=== PATIENT | male | born 1960 | race Caucasian/White ===

== ENCOUNTER 2017-03-02 19:07 | Inpatient (IN) ==
[2017-03-02] MEDS ORDERED: ATIVAN IV ONE (19:29)
[2017-03-02 19:35] LABS: MANUAL DIFF NEEDED? NO
[2017-03-02 19:37] LABS: EOS# 0.14 X1000 (0.0-0.7); HEMATOCRIT 34.6 % (42.0-52.0); HEMOGLOBIN 12.1 g/dL (14.0-18.0); IMM GRAN# 0.01 X1000 (0.0-0.04); IMM GRAN% 0.1 % (0.0-0.5); LYMPH# 2.63 X1000 (1.2-3.4); LYMPH% 36.7 % (20.5-51.1); MCH 29.3 PG (27-31); MCV 83.8 FL (81-99); MONO# 0.47 X1000 (0.11-0.59); MONO% 6.6 % (1.7-9.3); MPV 11.3 FL (7.4-10.4); NEUT% 53.6 % (42.2-75.2); PLT 203 X1000 (130-400); RBC 4.13 XMIL (4.7-6.1)
[2017-03-02] MEDS ORDERED: AMIDATE IV ONE (19:42)
[2017-03-02] MEDS ORDERED: AMIDATE ONE (19:42)
[2017-03-02] MEDS ORDERED: QUELICIN ONE (19:43)
[2017-03-02] MEDS ORDERED: QUELICIN IV ONE (19:44)
[2017-03-02] MEDS ORDERED: NORCURON ONE (19:46)
[2017-03-02] MEDS ORDERED: STERILE WATER INJ. ONE (19:47)
[2017-03-02] MEDS ORDERED: NORCURON IV ONE ×3 (19:48→21:25)
[2017-03-02] MEDS ORDERED: DIPRIVAN 1% 1,000 MG/100 ML BOTTLE IV SCH (19:50)
[2017-03-02] MEDS ORDERED: NS 1,000 ML IV ONE ×3 (19:56→21:07)
[2017-03-02] MEDS ORDERED: NS 1,000 ML ONE (19:56)
[2017-03-02 20:06] LABS: ALBUMIN 3.9 g/dL (3.5-5.0); CALCIUM 9.5 mg/dL (8.8-10.2); MAGNESIUM 1.8 mg/dL (1.5-2.7); POTASSIUM 3.5 mmol/L (3.5-5.1); TOTAL BILIRUBIN 0.4 mg/dL (0.20-1.00)
[2017-03-02 20:12] LABS: UR AMPHETAMINES QUAL NONE DETECTED (NONE DETECT); UR BARBITUATES QUAL NONE DETECTED (NONE DETECT); UR BENZODIAZEPIN QUAL NONE DETECTED (NONE DETECT); UR CANNABINOIDS QUAL NONE DETECTED (NONE DETECT); UR COCAINE QUAL NONE DETECTED (NONE DETECT); UR MDMA QUAL NONE DETECTED (NONE DETECT); UR METHADONE QUAL NONE DETECTED (NONE DETECT); UR METHAMPHETAMINE QUAL NONE DETECTED (NONE DETECT); UR OPIATES QUAL NONE DETECTED (NONE DETECT); UR OXYCODONE QUAL NONE DETECTED (NONE DETECT); UR PCP QUAL NONE DETECTED (NONE DETECT); UR TCA QUAL NONE DETECTED (NONE DETECT)
[2017-03-02 20:16] LABS: INR 1.04 (0.86-1.15); PROTIME 13.9 Seconds (12.1-15.5); PTT PL 28.7 Seconds (22.6-43.9)
[2017-03-02 20:18] LABS: FREE T4 1.2 ng/dL (0.93-1.70)
[2017-03-02] MEDS ORDERED: LASIX IV ONE (20:24)
[2017-03-02] MEDS ORDERED: LASIX ONE (20:25)
[2017-03-02 20:27] LABS: BILIRUBIN URINE NEGATIVE (NEGATIVE); BLOOD URINE 3+ (NEGATIVE); CLARITY SL. CLOUDY (CLEAR); COLOR YELLOW; LEUKOCYTES URINE TRACE (NEGATIVE); NITRITE URINE NEGATIVE (NEGATIVE); UROBILINOGEN URINE NORMAL
--- NOTE | 2017-03-02 20:34 | Diag Imaging Result Document ---
PROCEDURE NAME: HEAD W/O CONTRAST - 03/02/2017 CT OF THE HEAD WITHOUT CONTRAST: FINDINGS: There is opacification of the visualized portion of the left maxillary sinus and most of the left sphenoid sinus with several of the anterior ethmoid air cells being opacified as well. The possibility of a mucocele in the left maxillary sinus cannot be excluded. There is no evidence of bleed or abnormal extra-axial fluid collection. There is some periventricular white matter lucency extending into the anterior limb of the internal capsule on the left which is presumably due to previous microvascular ischemic disease. No previous studies are available for comparison. There are calcifications present in both internal carotid arteries and the basilar artery and both vertebral arteries. IMPRESSION: Atherosclerotic changes and microvascular ischemic change. Left maxillary, ethmoid and sphenoid sinusitis.
[2017-03-02 20:48] LABS: URINE WBC <10 /HPF (<10)
[2017-03-02 20:49] LABS: URINE CAST NONE SEEN /LPF; URINE CRYSTAL NONE SEEN /HPF; URINE CULTURE PL NEEDED? YES; URINE EPITHELIAL CELLS <10 /HPF (<10); URINE SOURCE CATH
--- NOTE | 2017-03-02 21:29 | EKG Report ---
Test Performed on : 03/02/2017 8:21:34 PM Test Reason : CHEST PAIN Blood Pressure : / mmHG Vent. Rate : 140 BPM Atrial Rate : 150 BPM P-R Int : 124 ms QRS Dur : 092 ms QT Int : 270 ms P-R-T Axes : 000 074 196 degrees QTc Int : 412 ms Sinus tachycardia. with premature ventricular complexes. or fusion complexes Anterior infarct (cited on or before 07-JAN-2011) Marked ST abnormality, possible inferolateral subendocardial injury Abnormal ECG When compared with ECG of 07-JAN-2011 09:27, Significant changes have occurred Unconfirmed Result
[2017-03-02 21:45] LABS: BE 0.8 mmoll (-3.0-3.0); BLOOD TYPE ARTERIAL; DRAW SITE R RADIAL; METHB 1.2 % (0.0-1.5); O2(CT) 18.1 mL/dL (15.0-23.0); PCO2(98.6) 46 mmHg (35-45); PO2(98.6) 100 mmHg (60-100); SAMPLE BLOOD; SAO2 98.8 % (95.0-100.0); SRATE 14 BPM; THB 13.4 g/dL (11.5-17.4); TVOL 600 mL; pH(98.6) 7.37 (7.35-7.45)
[2017-03-02 21:48] LABS: ALLEN TEST YES; MODALITY VENTILATOR
[2017-03-02] MEDS ORDERED: LABETALOL IV ONE (22:29)
[2017-03-03] MEDS: DIPRIVAN 1% 1,000 MG/100 ML BOTTLE IV SCH ×3 (01:15→08:58)
[2017-03-03] MEDS: SODIUM CHLORIDE 0.9% INJ SCH (01:50)
[2017-03-03] MEDS: LOVENOX SUBQ SCH (01:50)
[2017-03-03] MEDS: PROTONIX IV SCH (01:50)
[2017-03-03] MEDS: LEVAQUIN 500 MG in NS 100 ML IV SCH (01:58)
[2017-03-03 04:50] LABS: MANUAL DIFF NEEDED? NO
[2017-03-03 05:01] LABS: BASO% 0.3 % (0.0-0.8); EOS# 0.11 X1000 (0.0-0.7); EOS% 1.2 % (0.0-10.0); HEMATOCRIT 34.3 % (42.0-52.0); HEMOGLOBIN 11.9 g/dL (14.0-18.0); IMM GRAN# 0.02 X1000 (0.0-0.04); IMM GRAN% 0.2 % (0.0-0.5); LYMPH# 2.23 X1000 (1.2-3.4); LYMPH% 23.5 % (20.5-51.1); MCH 29.3 PG (27-31); MCHC 34.7 g/dL (33-37); MCV 84.5 FL (81-99); MONO# 0.57 X1000 (0.11-0.59); MPV 11.5 FL (7.4-10.4); NEUT% 68.8 % (42.2-75.2); PLT 228 X1000 (130-400); RBC 4.06 XMIL (4.7-6.1)
[2017-03-03 05:03] LABS: ALLEN TEST YES; BE 0.8 mmoll (-3.0-3.0); BLOOD TYPE ARTERIAL; DRAW SITE R RADIAL; METHB 1.7 % (0.0-1.5); O2(CT) 18.1 mL/dL (15.0-23.0); PCO2(98.6) 43 mmHg (35-45); PO2(98.6) 186 mmHg (60-100); SAMPLE BLOOD; SAO2 99.9 % (95.0-100.0); SRATE 14 BPM; THB 13.1 g/dL (11.5-17.4); TVOL 600 mL; pH(98.6) 7.39 (7.35-7.45)
[2017-03-03 05:05] LABS: MODALITY VENTILATOR
[2017-03-03 05:23] LABS: CALCIUM 8.5 mg/dL (8.8-10.2); POTASSIUM 3.7 mmol/L (3.5-5.1)
[2017-03-03] MEDS: HUMALOG SUBQ SCH ×4 (07:22→20:58)
--- NOTE | 2017-03-03 08:21 | Diag Imaging Result Document ---
PROCEDURE NAME: CHEST-PORTABLE - 03/03/2017 AP PORTABLE CHEST ERECT AT 0605: FINDINGS: There is an endotracheal tube with its tip a centimeter above the caleb. There are sternotomy wires and anterior mediastinal surgical clips. The inspiration is much less optimal than on 01/07/2011. There is a left pleural effusion. There is bilateral lower lobe atelectasis. There is also apparent lingular atelectasis. IMPRESSION: Atelectasis and left pleural effusion.
[2017-03-03] MEDS: ASPIRIN EC PO SCH (08:59)
[2017-03-03] MEDS: LOPRESSOR PO SCH (09:00)
[2017-03-03] MEDS: PLAVIX PO SCH (09:00)
--- NOTE | 2017-03-03 10:10 | HISTORY AND PHYSICAL ---
CHIEF COMPLAINT: Altered mental status. HISTORY OF PRESENT ILLNESS: Mr. Salomon is a 56-year-old male whose daughter is at bedside. He presented to [facility] earlier last night related to altered mental status. He was admitted to [facility] on the first february for a similar situation. They did various testing which the daughter stated included an MRI, an LP to rule out meningitis , and an EEG. He was ultimately apparently sent home with no diagnosis of acute CVA or acute or new onset seizure. The CSF fluid apparently did not show any signs of meningitis. He has a known history of diabetes mellitus type 2, hypertension and coronary artery disease. He was switched at [facility] from oral anti hyperglycemics to 70/30 insulin and discharged home. Today, he reportedly took his insulin, had not eaten, and so they were on their way to get food when he started having very slurred speech. The daughter stated that he appeared to know what was going on because he began to moan when they passed [facility] where they were intending to go. At any rate, on arrival to the emergency room a CT scan was obtained, as well as laboratory data. The CT report showed atherosclerotic changes and microvascular ischemic changes, left maxillary ethmoid and sphenoid sinusitis. Laboratory data showed mild anemia with a hemoglobin and hematocrit of 12.1 and 34.6 respectively. Patient did show mild elevations as well in his BUN and creatinine. No baseline is known. He was intubated at [facility] and sent to [facility] for further evaluation and treatment. PAST MEDICAL HISTORY: 1. Hypertension. 2. Coronary artery disease. 3. Bipolar disorder. PREVIOUS SURGICAL HISTORY: CABG. SOCIAL HISTORY: Lives at home alone. Stopped using tobacco in 1997 when he had his coronary artery bypass graft. Stopped using illicit drugs and alcohol 28 years ago when his daughter was born. FAMILY HISTORY: The daughter stated that there was heart disease in first- degree relatives, but no other significant illness. ALLERGIES: No known drug allergies. HOME MEDICATIONS: 1. Celexa 20 mg p.o. daily. 2. Vitamin D 3 50,000 units p.o. as directed. 3. Lisinopril 10 mg p.o. daily. 4. Aspirin 81 mg p.o. daily. 5. Plavix 75 mg p.o. daily. 6. NPH 70/30 insulin 15 units subcutaneously b.i.d. 7. Metoprolol 25 mg p.o. daily. REVIEW OF SYSTEMS: Fourteen point review of systems could not be conducted with the patient as he is ventilated and sedated on propofol. PHYSICAL EXAMINATION: VITAL SIGNS: Temperature 97.2 degrees, pulse 83, respirations 15, blood pressure 125/81, oxygen saturation 100% on mechanical ventilation. GENERAL: This is a 56-year-old male, who is on the ventilator. Daughter at bedside. He is sedated on propofol. HEENT: Head is atraumatic, normocephalic. Pupils equal, round, reactive to light. Extraocular eye movement could not be tested. Oral mucosa is moist. ET tube was noted in place. NECK: Supple. No JVD. Trachea is midline. No carotid bruit on auscultation. CARDIAC: Regular rhythm. S1, S2 appreciated. No murmurs, gallops, rubs. LUNGS: Decreased bilaterally. Patient is mechanically ventilated. No rhonchi , wheezes, rales. Symmetrical rise and fall of respirations. ABDOMEN: Soft, nondistended, nontender. Bowel sounds present in all 4 quadrants. Normoactive. No pulsatile mass. No organomegaly. EXTREMITIES: No clubbing, cyanosis, or edema. 2+ pedal pulses bilaterally. GENITOURINARY: Stuart catheter in place draining clear yellow urine. NEUROLOGICAL: Neurological examination could not be conducted as patient is mechanically ventilated and sedated on propofol. DIAGNOSTIC DATA: CT of the head showed atherosclerotic changes, microvascular changes and sinusitis. LABORATORY DATA: WBC 7.17, hemoglobin 12.1, hematocrit 34.6, platelet count 203. Coagulations within normal limits. D-dimer 0.61. ABG: A pH 7.37, pCO2 46, PO2 100, bicarbonate 25.5 on 80% ventilator. Sodium 137, potassium 3.5, chloride 99, carbon dioxide 22, BUN 25, creatinine 1.4. Glucose 143, troponin 0.043, CK 79. Urine 3+ protein, 3+ blood. Toxicology screen negative. ASSESSMENT AND PLAN: 1. Altered mental status of unknown etiology. Differentials to include transient ischemic attack versus cerebrovascular accident, vitamin deficiency, neuroglycopenia, new onset seizure. The patient was recently admitted to [facility]. Records from this admission have been ordered as not to order duplicate testing. Will order MRI with and without contrast for morning. 2. Sinusitis. Will give Levaquin 500 mg intravenous daily. 3. Hypertension. We will continue home medications. 4. Bipolar disorder. Patient appears to only be on Celexa. Will continue when appropriate. 5. Coronary artery disease status post coronary artery bypass graft. Continue home medications. Check troponin in morning. Continue metoprolol. Further recommendations per patient's clinical course. Dictated by VERN Nazario for Sofia Dodd MD Seen and examined patient with discussion of plan with SOCIAL MEDIA PROJECT MANAGER cc: VERN Nazario MD [facility]
[2017-03-03] MEDS ORDERED: ATIVAN IV PRN (10:40)
[2017-03-03 11:14] LABS: ALLEN TEST YES; BE -0.7 mmoll (-3.0-3.0); BLOOD TYPE ARTERIAL; DRAW SITE R RADIAL; METHB 1.8 % (0.0-1.5); MODALITY VENTILATOR; O2(CT) 16.8 mL/dL (15.0-23.0); PCO2(98.6) 40 mmHg (35-45); PO2(98.6) 117 mmHg (60-100); SAMPLE BLOOD; THB 12.3 g/dL (11.5-17.4); pH(98.6) 7.39 (7.35-7.45)
[2017-03-03] MEDS: CLINDAMYCIN 600 MG/NS 600 MG/50 ML IVPB IV SCH ×2 (11:24→20:17)
--- NOTE | 2017-03-03 12:53 | PROGRESS NOTE ---
DATE: 03/03/2017 He was seen. Patient is much more awake and alert. He seems to be doing better from that standpoint. The plan is for extubation today. We are still waiting on getting records from [facility] about his recent admission. Also we are progressing with MRI and neuro consult to evaluate for other process. We will continue to monitor closely. cc: Vinayak Purcell MD
[2017-03-03] MEDS ORDERED: NS 1,000 ML IV SCH (13:00)
--- NOTE | 2017-03-03 14:08 | CONSULTATION ---
DATE OF CONSULTATION: 03/03/2017 PULMONARY CONSULTATION: REQUESTING PHYSICIAN: Dr. Purcell. REASON FOR CONSULTATION: Respiratory failure, on mechanical ventilation. HISTORY OF PRESENT ILLNESS: Mr. Salomon is a 56-year-old white male, with history of coronary artery disease and prior coronary artery bypass grafting, history of bipolar disorder, who was admitted to [facility] in February of this year with altered mental status. Those records are not yet available for review but have been requested. The patient has no recent admission to this hospital. By report, the MRI, LP, and the EEG did not explain the diagnosis and he was discharged home. By report, patient was en route to a fast food restaurant when patient became unresponsive. He was brought to the emergency room at [place] and was intubated for airway control. Initial CT scan was negative. The patient was transferred to this hospital for additional evaluation and management. PAST MEDICAL HISTORY/PROBLEM LIST: 1. Coronary artery disease, status post bypass grafting. 2. Bipolar disorder. 3. Insulin-requiring diabetes mellitus. 4. Hypertension. SOCIAL HISTORY: Nonsmoker for approximately 20 years. No recent alcohol or drug use. FAMILY HISTORY: Positive for heart disease. REVIEW OF SYSTEMS: Cannot be obtained. HOME MEDICATIONS: Were reviewed. PHYSICAL EXAMINATION: General: Reveals a healthy-appearing white male, on mechanical ventilation. His sedation has been discontinued and he is starting to arouse. Vital Signs: BP 100/66, heart rate 77, respiration rate 14, oxygen saturation 100%. HEENT: Pupils are equal and reactive. Oropharynx evaluation is clear. Endotracheal tube is in position in the oropharynx. There is ileus secretions in the canister from ET suctioning. Neck: Supple. Chest: Reveals coarse rhonchi. Cardiac Exam: Regular rate. Normal S1, normal S2. Abdomen: Soft and without hepatosplenomegaly. Extremities: Without edema. LABORATORIES: Chest x-ray reveals atelectasis/infiltrate at the left base. Urine drug screen is negative. Chemistry: Sodium 139, potassium 3.7, chloride 100, bicarbonate 24, BUN 26, creatinine 1.5 white blood count 9.4, hemoglobin 11.9, platelet count 228,000. Arterial blood gas early this morning; pH 7.39, pCO2 of 43, PO2 of 186. Urinalysis reveals 10-20 red blood cells but no significant white blood cells. IMPRESSION: A 56-year-old with altered mental status, probable aspiration pneumonia, hypoxemic respiratory failure, mild microscopic hematuria. RECOMMENDATIONS: 1. Begin spontaneous breathing trial. Propofol has been discontinued. I will evaluate patient's status to see if he can be extubated this morning. 2. Collect sputum for culture and sensitivity given aspiration event. Cleocin has been added to his current antibiotic regimen. 3. Agree with MRI and neurology evaluation as you are doing. 4. Consider cardiology evaluation. Patient may need an event monitor given his current presentation with recurrent altered mental status. 5. Consider repeat evaluation of UA to see if he needs additional urologic evaluation given his microscopic hematuria. cc: Lee Melendez MD
--- NOTE | 2017-03-03 14:27 | CONSULTATION ---
DATE OF CONSULTATION: 03/03/2017 Mr. Salomon is 56 years old and he had temporary altered awareness. He is not able to provide history himself at this point. He had required intubation, mechanical ventilation, heavy sedation with propofol. Propofol has just been discontinued and he is beginning to recover alertness. History from very attentive daughter at the bedside is that he has had some problems with high blood sugars in the past and these have been associated with changes in mental status. At least once, 11 days ago, he seemed to be unconscious. Daughter reports this was associated with elevated blood sugar. He was standing and became unresponsive but did not fall. Daughter helped him to prevent falling. There may have been some jerking movements in the limbs. He seemed sluggish for a few hours and then was back to baseline. Yesterday, appearance was somewhat similar. He developed apparent anxiety. I do not find documented hypoglycemia but I do not know that I have seen all of the record. I have reviewed the records available on the computer. Blood sugars have been moderately elevated. He has mildly elevated BUN and creatinine, and I do not know whether these are at baseline or not. He has anemia. Urine drug screen was all negative. Noncontrast CT of the head is reported to show evidence of diffuse micro ischemic change a little more prominent on the left with possible old left basal ganglia lacune. Systolic blood pressure was initially 160s, later 230, recently 119. Heart rate has ranged from 70s to 110s. He has been afebrile. Past history is remarkable for hypertension, diabetes mellitus. HOME MEDICINES: Include aspirin, clopidogrel, metoprolol, lisinopril, insulin, citalopram. I believe insulin was started recently. On exam, Mr. Salomon is supine, awake, lethargic following simple commands slowly but consistently including holding up 2 fingers on each hand. He was not attentive to formal visual field testing. He moved his arms and legs purposefully and demonstrated good power in all limbs. Tone is symmetric in the limbs. Plantar response is extensor bilaterally. Reflexes are absent at the ankles. Facial motility is symmetric. He has full lateral extraocular movements with head turning. Pupils react to bright light. I believe tongue is midline. Head is unremarkable. There is no meningismus. He did well with [id number] testing. IMPRESSION: Global encephalopathy, uncertain etiology. Current lethargy can be attributed to recently stopped propofol. I did not see him on admission but I have reviewed the description in the chart. There was not clear focal neurologic feature. Some of daughter's description of previous episode is consistent with seizure but I do not get any other information to suggest seizure. I do not have any urgent suggestion from neurologic standpoint. I think we can follow him clinically, hope he continues to improve mentally and then make decisions about further neurologic workup if needed. Thanks for asking me to see Mr. Salomon. cc: Pooja Ruiz III, MD [facility] HOSPITALYolanda
[2017-03-03] MEDS ORDERED: ATIVAN IV ONE (15:23)
--- NOTE | 2017-03-03 17:21 | Diag Imaging Result Document ---
PROCEDURE NAME: MRI BRAIN W/O CONTRAST - 03/03/2017 MRI OF THE BRAIN WITHOUT CONTRAST: FINDINGS: The exam was originally scheduled as a without and with contrast exam. However, according to the technologist, the patient climbed out of the magnet and ended the exam after the Omniscan was administered but before any postcontrast images could be obtained. No comparison MRI is available. There are small (subcentimeter) areas of restricted diffusion on the diffusion- weighted images, 1 in the deep white matter, a 2nd in posterior periventricular white matter, and a 3rd in subcortical white matter at the superior frontal parietal junction. These are consistent with areas of acute microvascular ischemia/lacunar infarcts. There are also mild chronic microvascular ischemic changes. There is no evidence of hemorrhage, mass effect, midline shift, or hydrocephalus. There is extensive paranasal sinus disease noted on the left. IMPRESSION: 1. Small (subcentimeter) areas of acute microvascular ischemia/acute lacunar infarcts in deep white matter, posterior periventricular white matter, and superior frontal parietal junction subcortical white matter on the left. There are also mild chronic microvascular ischemic changes. 2. Extensive paranasal sinus disease noted on the left. [facility]
[2017-03-04] MEDS: LEVAQUIN 500 MG in NS 100 ML IV SCH (02:11)
[2017-03-04] MEDS: LOVENOX SUBQ SCH (02:12)
[2017-03-04] MEDS: PROTONIX IV SCH (02:12)
[2017-03-04 08:37] LABS: HEMATOCRIT 32.6 % (42.0-52.0); HEMOGLOBIN 10.9 g/dL (14.0-18.0); MCH 29.1 PG (27-31); MCHC 33.4 g/dL (33-37); MCV 87.2 FL (81-99); MPV 12.5 FL (7.4-10.4); RBC 3.74 XMIL (4.7-6.1)
[2017-03-04] MEDS: CLINDAMYCIN 600 MG/NS 600 MG/50 ML IVPB IV SCH ×3 (08:37→20:12)
[2017-03-04] MEDS: HUMALOG SUBQ SCH ×4 (08:38→20:16)
[2017-03-04] MEDS: PLAVIX PO SCH (09:36)
[2017-03-04] MEDS: ASPIRIN EC PO SCH (09:36)
[2017-03-04] MEDS: LOPRESSOR PO SCH (09:36)
[2017-03-04 09:40] LABS: ALBUMIN 3.1 g/dL (3.5-5.0); CALCIUM 8.3 mg/dL (8.8-10.2); POTASSIUM 3.8 mmol/L (3.5-5.1); TOTAL BILIRUBIN 0.61 mg/dL (0.20-1.00); TOTAL PROTEIN 5.8 g/dL (6.3-8.3)
--- NOTE | 2017-03-04 12:48 | PROGRESS NOTE ---
DATE: 03/04/2017 SUBJECTIVE: Much more awake, alert today. No focal complaints. OBJECTIVE: Blood pressure 136/61, heart rate of 85, respiratory rate is 16. Temperature 98.3 degrees, 96% on 5 L.Cardiovascular: Regular rate and rhythm. Pulmonary: Diminished at the bases with occasional rhonchi. GI: Soft, nontender, nondistended. Bowel sounds are positive. Extremities: No clubbing or cyanosis. Lymphatics: No peripheral edema. Neurological: Nonfocal. LABORATORY DATA: White count is normal. Hemoglobin and hematocrit 10 and 32, platelets 180,000. Chemistries: His creatinine is up to 1.8. His MRI unfortunately showed multiple areas of stroke, small areas mostly I want to say on the right side. He does not have an obvious deficit except his encephalopathy but sub cm acute areas of stroke with lacunar posterior periventricular matter, superior frontal parietal on the left. Did not see any areas on both sides but definitely saw them on the left. In any case, clinically had CVA. PROBLEM LIST: 1. Encephalopathy that seems to be resolving and is possibly associated with stroke although the areas of stroke were fairly small. 2. Acute ischemic stroke. He is on aspirin and Plavix already. I will add statin therapy. We will pursue a carotid plus or minus echo and follow clinically. 3. Hypertension appears to be controlled. 4. Acute respiratory failure. Being managed by Pulmonary. He is still on Levaquin and clindamycin for possible aspiration type pneumonia. We are weaning oxygen and continue to monitor very closely. DISPOSITION: Pending his clinical course but overall seems improved. Continue to monitor. I think he is probably stable at this point for step-down so we will pursue change. cc: Vinayak Purcell MD
[2017-03-04] MEDS: LACTINEX PO SCH ×2 (14:15→17:46)
[2017-03-04] MEDS: LIPITOR PO SCH (20:19)
[2017-03-05] MEDS: PROTONIX IV SCH (01:01)
[2017-03-05] MEDS: LOVENOX SUBQ SCH (01:01)
[2017-03-05] MEDS: LEVAQUIN 500 MG in NS 100 ML IV SCH (02:33)
[2017-03-05] MEDS: CLINDAMYCIN 600 MG/NS 600 MG/50 ML IVPB IV SCH ×3 (05:13→19:13)
[2017-03-05 05:24] LABS: HEMATOCRIT 33.6 % (42.0-52.0); HEMOGLOBIN 11.7 g/dL (14.0-18.0); MCH 29.6 PG (27-31); MCHC 34.8 g/dL (33-37); MCV 85.1 FL (81-99); MPV 11.7 FL (7.4-10.4); RBC 3.95 XMIL (4.7-6.1)
[2017-03-05 05:56] LABS: AGAP 11; ALKALINE PHOSPHATASE 98 U/L (32-122); BUN 28 mg/dL (8-22); CALCIUM 8.9 mg/dL (8.8-10.2); CHLORIDE 103 mmol/L (98-107); COSMO 294; GOT 12 U/L (10-34); GPT 13 U/L (10-44); HDL 26 mg/dL (35-55); LDL 117 mg/dL; POTASSIUM 4.3 mmol/L (3.5-5.1); SODIUM 140 mmol/L (136-145); TCO2 26 mmol/L (25-35); TOTAL BILIRUBIN 0.38 mg/dL (0.20-1.00); TOTAL PROTEIN 6.3 g/dL (6.3-8.3); TRIGLYCERIDES 237 mg/dL (39-160); VLDL 47 mg/dL
[2017-03-05] MEDS: HUMALOG SUBQ SCH ×4 (07:05→20:36)
[2017-03-05] MEDS: PLAVIX PO SCH (09:00)
[2017-03-05] MEDS: LOPRESSOR PO SCH (09:00)
[2017-03-05] MEDS: ASPIRIN EC PO SCH (09:00)
[2017-03-05] MEDS: LACTINEX PO SCH ×3 (09:01→16:25)
--- NOTE | 2017-03-05 09:21 | Diag Imaging Result Document ---
PROCEDURE NAME: CHEST-2 VIEWS - 03/05/2017 CHEST 2 VIEWS: Compared with 03/03/2017. FINDINGS: The endotracheal tube has been removed. There has been interval decrease in atelectasis of the bilateral lung bases. There is a tiny residual left pleural effusion. There is apparent scarring along the left heart border. The lungs otherwise appear grossly clear. There is no pneumothorax seen. Heart size is normal. IMPRESSION: Interval decrease in basilar atelectasis. Tiny residual left pleural effusion.
--- NOTE | 2017-03-05 10:23 | ECHO REPORT ---
ORDER DATE: 03/04/2017 INTERPRETING PHYSICIAN: Dr. Lainez REQUESTING PHYSICIAN: CLINICAL INDICATIONS: This is a 56-year-old male with a stroke, mental status changes. M-MODE MEASUREMENTS: Right ventricle: 3.4 cm. Left ventricle end diastole: 5.2 cm. Left ventricle end systole: 3.6 cm. Posterior wall: 1.8 cm. Interventricular septum: 1.8 cm. Left atrium: 4.6 cm. Aortic root: 3.5 cm. SUMMARY OF 2-DIMENSIONAL IMAGIN. Left ventricular function is normal. Ejection fraction is 59%. The chamber is moderately enlarged. There is questionable hypokinesis at the level of the basal interventricular septum and basal inferior wall suggesting chronic disease in the right coronary artery. The patient is post CABG according to historical information. 2. The right ventricle is mild to moderately enlarged. It shows normal function. 3. The aortic valve opens normally. Color flow mapping is unremarkable. 4. Pulmonic valve looks normal. Color flow mapping indicates mild degree of regurgitation. Pulmonary diastolic pressure is estimated at 21 mmHg. 5. The tricuspid valve shows mild to moderate degree of regurgitation. 6. The pulmonary systolic pressure is estimated at 41 to 46 mmHg. 7. The mitral valve looks normal with mild degree of regurgitation. Pulse wave Doppler of mitral inflow is normal. 8. Tissue Doppler of septal and lateral mitral annulus averages 6 cm. 9. There is no pericardial effusion, masses or thrombus. CONCLUSIONS: 1. Normal left ventricular systolic function. 2. No diastolic dysfunction. 3. Pulmonary pressure estimated at 41/21. 4. Mild degree of mitral and pulmonic regurgitation noted. 5. Mild enlargement of right ventricle. Clinical correlation is recommended. cc: MD Vinayak Bravo MD
[2017-03-05] MEDS: DUONEB (A & A) INH SCH ×3 (15:52→23:23)
--- NOTE | 2017-03-05 16:08 | PROGRESS NOTE ---
DATE: 03/05/2017 SUBJECTIVE: Patient has no focal complaints. OBJECTIVE: Vital signs: Blood pressure 92/49, heart rate of 87, respiratory rate 22, temperature 98.4 degrees, 100% on 30%. Cardiovascular: Regular rate and rhythm. Pulmonary: Bilateral breath sounds. Clear to auscultation. GI: Soft, nontender, nondistended. Bowel sounds are positive. LABORATORY DATA: White count 7, hemoglobin and hematocrit are 11 and 33, platelets of 194,000. Chemistries look okay except his sugar is up a little bit, 261. Troponin repeat was negative, just 1 mild elevation. LDL is 117, total cholesterol 190, and triglycerides were 237. He is already on Lipitor so we will continue to follow. PROBLEM LIST: 1. Stroke, acute, ischemic. Waiting on carotid test. Echo was unremarkable. Neuro I believe is following. We will continue to monitor. 2. Aspiration pneumonia, respiratory failure. He seems to be doing better. We are weaning oxygen. 3. Relative hyperglycemia. We will monitor that. He is diabetic so we resume his medications and follow. I do not know if we have checked a hemoglobin A1c since he has been here. It does not look like it, so we will monitor that. 4. Disposition. Likely to the floor today. cc: Vinayak Purcell MD
[2017-03-05] MEDS: LIPITOR PO SCH (20:37)
[2017-03-05] MEDS: APRESOLINE IV PRN (23:16)
[2017-03-05] MEDS: TYLENOL PO PRN (23:46)
[2017-03-06] MEDS: LOVENOX SUBQ SCH (02:49)
[2017-03-06] MEDS: PROTONIX IV SCH (02:50)
[2017-03-06] MEDS: LEVAQUIN 500 MG in NS 100 ML IV SCH (02:50)
[2017-03-06] MEDS: CLINDAMYCIN 600 MG/NS 600 MG/50 ML IVPB IV SCH ×3 (04:38→22:27)
[2017-03-06 05:02] LABS: HEMATOCRIT 32.9 % (42.0-52.0); HEMOGLOBIN 11.3 g/dL (14.0-18.0); MCH 29.2 PG (27-31); MCHC 34.3 g/dL (33-37); RBC 3.87 XMIL (4.7-6.1)
[2017-03-06 05:21] LABS: CALCIUM 9.1 mg/dL (8.8-10.2); POTASSIUM 3.9 mmol/L (3.5-5.1)
[2017-03-06] MEDS: DUONEB (A & A) INH SCH ×2 (06:21→08:28)
[2017-03-06] MEDS: HUMALOG SUBQ SCH ×4 (06:37→22:10)
[2017-03-06] MEDS: APRESOLINE IV PRN (07:22)
--- NOTE | 2017-03-06 08:35 | PROGRESS NOTE ---
DATE: 03/06/2017 Mr. Salomon is awake, alert, attentive, oriented, carrying on appropriate conversation. He was not alert enough to provide firsthand history when I saw him on Monday. This morning, he reports feeling sluggish, noticing slurred speech and a little bit of right-sided weakness. He did not notice trouble finding his words. He does not have clear memory of what happened after he got to the hospital. Apparently, he had a good bit of anxiety and required intubation and then heavy sedation transiently. Workup now includes echocardiogram done over the weekend, reported to show no source of embolus. Brain MRI reported after I saw him Monday showed some small areas of possible acute infarction in the left hemisphere white matter. His blood pressures have been maintained in a moderate elevated level, systolics mostly 170s to 150s, last recording 199 and 1 recorded systolic 92 over the weekend and he apparently tolerated that. Heart rate has ranged from 80s to 100s. Blood sugar has ranged mid 100s to mid 200s. His BUN and creatinine have continued slightly elevated over the weekend since admission. Mr. Salomon was not attentive to detailed motor exam on Monday. Today, he is awake,alert and attentive. I can overcome the right deltoid, grading 4/5. Tone is slightly increased in the right arm. He did well on [id number] testing bilaterally. He reports equal sensation over the hands. He has a stocking pattern of sensory loss equal on the left and right leg. Plantar response is silent bilaterally. I did not test his gait. Visual field is full tested grossly by confrontational finger counting. Facial motility is symmetric. IMPRESSION: Minimal right hemiparesis consistent with the reported subcortical acute infarction noted on MRI. This would generally not account for the agitation and later obtundation that he experienced. I think the altered consciousness can be blamed on sedative medicines. He seems recovered now. I do not have any urgent suggestion from a neurologic standpoint. Carotid ultrasound has been ordered and I will check on that when it is reported. We can continue to allow moderate blood pressure elevation as long as he is tolerating that. Would continue aggressive management of blood sugar. Thanks for allowing me to follow Mr. Salomon. cc: MD EUGENIO Delgado III
[2017-03-06] MEDS: ZOFRAN IV PRN (09:40)
[2017-03-06] MEDS: TYLENOL PO PRN ×2 (09:40→16:06)
[2017-03-06] MEDS: LACTINEX PO SCH ×3 (09:40→16:06)
[2017-03-06] MEDS: ASPIRIN EC PO SCH (09:40)
[2017-03-06] MEDS: PLAVIX PO SCH (09:40)
[2017-03-06] MEDS: LOPRESSOR PO SCH (09:40)
--- NOTE | 2017-03-06 10:15 | PROGRESS NOTE ---
DATE: 03/06/2017 SUBJECTIVE: Mr. Salomon is a 56-year-old whose daughter was at the bedside. On presentation on 03/02/2017 he came to [place] with related altered mental status. He was admitted in [facility] the first of February for a similar situation. They did various testing including MRI, LP to rule out meningitis, and an EEG. Ultimately, apparently sent home with a diagnosis of acute CVA or acute new onset seizure. CSF fluid apparently did not show any sign of meningitis. He has a known history of diabetes mellitus type 2, hypertension, coronary artery disease. Switched at [facility] to oral anti-hypoglycemic. He was put on 70/30 insulin and discharged home. On the day of admission, 03/02/2017 he had insulin, had not eaten, and started having slurred speech. He began to moan. They passed [facility] where they intended to go. At any rate, arrival to the emergency room was obtained. CT showed atherosclerotic changes, microvascular ischemic changes. There was left maxillary, ethmoid, and sphenoid sinusitis. Laboratory data showed mild anemia, hemoglobin 12 and hematocrit 34. PAST MEDICAL HISTORY: Hypertension, coronary artery disease, bipolar disease. So he was admitted with altered mental status, potential for transient ischemic event versus CVA, vitamin deficiency, and possible hypoglycemia, new onset seizure back in [place]. This morning he is awake and alert. He wants to go home. OBJECTIVE: Vital signs: Temperature 97.8 degrees, pulse 93, respirations 18, blood pressure 190/112. HEENT: Pupils are equal. Lungs: Clear in all lung cruz. Cardiovascular: Regular rhythm and rate without murmur or S3. Intake and output: Urine output was 2.8 L. LAB: White count 7,930, hematocrit 32, platelet count 210,000. Sodium 139, potassium 3.9, chloride 99, bicarb 24, BUN 24, creatinine 1.8. Blood sugars 265, 235, 256. ASSESSMENT AND PLAN: I appreciate Dr. Ruiz's help. Dr. Ruiz saw him on 03/03/2013. He had required intubation, mechanical ventilation, heavy sedation with propofol. He had some problems with high blood sugars in the past. These have been associated with change in mental status at least once 11 days before this admission. Appeared to be unconscious and this was associated with elevated blood sugar. Daughter helped him to try and prevent falling. So global encephalopathy, uncertain etiology. Current lethargy attributed to recently stopped propofol. No clear focal neurologic feature. Patient appears to be improving. 1. Questionable stroke, acute ischemic . Carotid test, echo was unremarkable. Really it sounds like global encephalopathy and appears to have improved. I am not sure of the etiology. Minimal right hemiparesis consistent with reported subcortical acute infarction reported on [place]. This would not account for his agitation and then later obtundation that he experienced. Dr. Ruiz feels the altered consciousness can be blamed on sedative medication and seems to be recovering. I think we can move him to the floor and begin some physical therapy. 2. Aspiration pneumonia, respiratory failure; improving. 3. Relative hyperglycemia. He is on sliding scale. 4. Disposition. Decide whether he would be a good candidate to go to rehab or home with home health. X-ray shows interval decrease in basilar atelectasis. REVIEW OF HIS ORDERS: I do not see any change at this point. He is on Plavix 75 mg a day. He is getting clindamycin 600 mg IV q.8, Lipitor 10 mg a day, Levaquin 500 mg IV daily. Blood sugars still running around the 200s and I think we could consider starting a split dosing 70/30. He is on Humalog sliding scale right now. cc: Kj Eagle MD
[2017-03-06] MEDS: CARDIZEM PO SCH ×2 (13:07→22:05)
--- NOTE | 2017-03-06 13:57 | CONSULTATION ---
DATE OF CONSULTATION: 03/06/2017 REASON FOR CONSULTATION: Cardiology was consulted for paroxysmal supraventricular tachycardia. Patient has coronary artery disease, altered mental status. HISTORY OF PRESENT ILLNESS: Mr. Salomon is a 56-year-old gentleman who was admitted. This was obtained from the chart. He reportedly took his insulin, had not eaten so they were concerned that his blood sugar was low. He was noted to have slurred speech, altered mental status. The patient was subsequently brought to the emergency room in [place] and transferred and admitted at [facility] [place]. He was recently admitted at [facility] with the following diagnoses: 1. Altered mental status. 2. Diabetes. 3. Hypertension, coronary artery disease, dehydration. The discharge diagnosis seizures were ruled out. He had hypertension and coronary artery disease which was stable and his MRI of the brain without contrast on 02/21/2017 revealed mild parenchymal atrophy, chronic lacunar infarct of the left champion radiata with multifocal paranasal sinus disease. EEG was normal. Chest x-ray at that time in [place] on February 20 revealed mild heart failure. There was no acute intracranial pathology. He came here and he had a MRI on 03/03/2017 at [facility] [place] which revealed small acute microvascular ischemia, lacunar infarcts in deep white matter which were acute. There also was chronic microvascular changes. The patient says since coming to the hospital he feels better. He has had these episodes on a couple of times as well when he has noticed that he gets disoriented and he has attributed that to low blood sugars. However he has been taking his medications regularly and his admission blood sugars were normal. Hemoglobin and hematocrit was stable and his hemoglobin A1c is in the range of 12.6 done at [facility]. He does not perceive any palpitations. He has shortness of breath. There is no orthopnea. He denies chest pain. REVIEW OF SYSTEM: 14-point review of systems was done. Cardiovascular System: As above. Central nervous system: As above. System: No dysuria or hematuria. Respiratory: There is no history of cough, expectoration, hemoptysis. There is no history of fever or chills. Endocrine: Stable. PAST MEDICAL HISTORY: 1. Recently admitted at [facility] on 02/20/2017 discharged with a diagnosis of altered mental status, diabetes stable, hypertension, coronary artery disease. Hemoglobin A1c of 12.6. He was ruled out for seizure disorder by EEG, initially started on Keppra. On discharge he was not sent home on Keppra. 2. Coronary artery disease status post coronary artery bypass grafting with PALACIOS to left anterior descending artery, saphenous vein graft to ramus, saphenous vein graft to RCA on 05/01/1998 at [place]. 3. History of PTCA. 4. Cardiomyopathy. Last cardiac catheterization was done in 2011 at [facility] where he was noted to have SVG to RCA was occluded. SVG to circumflex OM1 had mid graft 80% stenosis which was stented. PALACIOS to left anterior descending artery was patent. 5. Diabetes. 6. Hypertension uncontrolled. 7. Hypercholesterolemia. 8. History of CHF. SOCIAL HISTORY: Patient lives at home. Stopped using tobacco 1997. Stopped taking illicit drugs and alcohol 28 years ago. ALLERGIES: There are no known drug allergies. HOME MEDICATIONS: Include metoprolol 25 daily, NPH 70/30 50 units b.i.d., Plavix 75, aspirin 81, lisinopril 10, multivitamins. PHYSICAL EXAM: Vital signs: Blood pressure in the hospital when he came in was 230/152 and subsequently blood pressure after medications were low. The lowest blood pressure was 100/66 and gradually creeping up to 199/112, at the time of my examination blood pressure was 128/81. Cardiovascular System: Normal jugular venous pressure. There no thyromegaly. No carotid bruit. First and second heart sounds were heard. There is faint systolic murmur. Respiratory System: Normal air entry. There is no crepitations or rhonchi. Abdomen: Soft, nontender. There was no guarding or rigidity. Bowel sounds were heard. Central nervous system: Was answering questions appropriately. Detailed central nervous system examination not performed. LABORATORY EXAMINATION: Revealed sodium 139, potassium 3.9, BUN 24, creatinine 1.8, magnesium level was 1.8 on 03/02/2017. Hematology. Hemoglobin 12.1, hematocrit 34, white count 7.16, platelet count of 203,000. Chest x-ray on 03/05/2017,. Basilar atelectasis with tiny left pleural effusion. Echocardiogram revealed ejection fraction of 59%, enlarged left ventricle with mild pulmonary arterial hypertension. ASSESSMENT AND PLAN: Mr. Laz Salomon is a 56-year-old gentleman with history of hypertension, coronary artery disease, status post coronary artery bypass grafting, last cardiac catheterization 2011, stent placements to the saphenous vein graft to the obtuse marginal artery, diabetes, history of bipolar disorder on Celexa. He is admitted with altered mental status. Similar admission with altered mental status noted in [facility]. He was ruled out for seizure disorder. On telemetry patient is having runs of supraventricular tachycardia which has been paroxysmal. No atrial fibrillation was noted. He is in sinus rhythm. RECOMMENDATIONS: 1. I suspect his episodes of altered mental status may be secondary to acute elevated blood pressure and hypertensive encephalopathy causing his problems. However he does have a new acute microvascular changes in his brain MRI. Given this, we will make sure that he does not have renal artery stenosis. His creatinine was 1.8. I will avoid a CT scan of his renal arteries. Will get ultrasound of his kidneys and duplex of his renal arteries to make sure there is no renal artery stenosis as he has significant fluctuation in his blood pressure going from 225 systolic to 120 and he is a vasculopath as well and renal artery stenosis needs to be ruled out. 2. For his paroxysms of supraventricular tachycardia will put him on Cardizem 60 q.8 today and change it to 180 mg CD which would help control his blood pressure. In addition beta- blockers have been started. We will continue with the same. 3. He is on aspirin and Plavix alone as an outpatient. We will do a 30-day loop monitor to make sure that there is no atrial fibrillation because if it is atrial fibrillation related he needs to be anticoagulated. However will continue aspirin and Plavix at the present time. 4. We will also get a Cardiolite stress test Lexiscan to rule out ischemia. He does not have chest pain but he has significant coronary artery disease. 5. We will also get carotid Dopplers to make sure there is no carotid disease to account for any of his symptoms. Thank you for the consult. Will follow hospital course. cc: Antoine Hand MD
[2017-03-06] MEDS: HUMULIN N SUBQ SCH ×2 (16:06→22:13)
[2017-03-06 16:11] LABS: HEMOGLOBIN A1C 10.9 % (4.8-6.0)
[2017-03-06] MEDS: LIPITOR PO SCH (22:05)
[2017-03-07] MEDS: HUMALOG SUBQ SCH ×4 (00:09→16:53)
[2017-03-07] MEDS: SODIUM CHLORIDE 0.9% INJ SCH (00:10)
[2017-03-07] MEDS: PROTONIX IV SCH ×2 (00:10→01:04)
[2017-03-07] MEDS: LOVENOX SUBQ SCH ×2 (00:10→01:03)
[2017-03-07] MEDS: LEVAQUIN 500 MG in NS 100 ML IV SCH (02:25)
[2017-03-07] MEDS: CLINDAMYCIN 600 MG/NS 600 MG/50 ML IVPB IV SCH ×2 (04:27→12:23)
[2017-03-07] MEDS: CARDIZEM PO SCH ×2 (04:27→14:06)
[2017-03-07] MEDS ORDERED: PNEUMOVAX 23 IM ONE (04:36)
[2017-03-07] MEDS: TYLENOL PO PRN (04:51)
[2017-03-07] MEDS: ZOFRAN IV PRN (06:03)
[2017-03-07] MEDS ORDERED: LEXISCAN ONE (07:47)
[2017-03-07] MEDS ORDERED: AMINOPHYLLINE ONE (08:06)
--- NOTE | 2017-03-07 08:15 | Diag Imaging Result Doc PS360 ---
CHEST-2 VIEWS - 03/07/2017 INDICATION: Abnormal exam COMPARISON: 03/05/2017 FINDINGS: Stable CABG changes. Heart size remains top normal. Pulmonary vascularity is normal. There is further decrease in the ill-defined infiltrates mainly on the left side. No significant infiltrates at this time. No pneumothorax or pleural effusion. IMPRESSION: No acute disease. Electronically signed by Brian Phelps 03/07/2017 8:12 AM
[2017-03-07] MEDS: ASPIRIN EC PO SCH (10:20)
[2017-03-07] MEDS: HUMULIN N SUBQ SCH (10:20)
[2017-03-07] MEDS: LOPRESSOR PO SCH (10:21)
[2017-03-07] MEDS: LACTINEX PO SCH ×3 (10:21→18:09)
[2017-03-07] MEDS: PLAVIX PO SCH (10:22)
--- NOTE | 2017-03-07 10:22 | Diag Imaging Result Doc PS360 ---
DUPLEX RENAL ARTY OR VEIN LMTD - 03/07/2017 INDICATION: Hypertension COMPARISON: None FINDINGS: There is incidental note of fatty change of the liver. The kidneys are normal in size contour and echotexture. The right kidney measures 11.8 x 6.5 x 6.9 cm. Cortex measures 14 mm. The left kidney measures 11.6 x 5.8 x 6.5 cm. Cortex measures 15 mm. There is no hydronephrosis or mass. The vascular indices are grossly normal. The arcuate artery resistive index on the right side is 0.72 and on the left side is 0.73. Renal artery ratios are normal bilaterally. IMPRESSION: Fatty change of the liver. Normal exam of the renal arteries and kidneys. Electronically signed by Brian Phelps 03/07/2017 10:20 AM
--- NOTE | 2017-03-07 13:27 | DISCHARGE SUMMARY ---
ADMISSION DATE: 03/02/2017 DISCHARGE DATE: HOSPITAL COURSE: A 56-year-old who presented on 03/02/2017 with altered mental status. His daughter was at the bedside. He presented to the emergency room at [place] related to altered mental status. He was admitted to [facility] on 02/20/2017 for similar situation. They did various testing with the daughter stating include MRI-LP to rule out meningitis and an EEG. He was, unfortunately, apparently sent home with no diagnosis, and he had no new onset of any specific pathology. CSF fluid apparently did not show any signs of meningitis. He has known history of diabetes mellitus, type 2; hypertension, coronary artery disease, bipolar disorder. He was switched at [facility] from an oral anti-hypoglycemic to 70/30 insulin and discharged home. On the day of admission, he reported that he had not eaten, but he took his insulin and, on the way to get some food, he started having very slurred speech. Daughter states that he appeared to not know what was going on because he began to moan, and they passed [facility] where they were intending to go. On arrival to the emergency room, CT scan was obtained as well as laboratory data. CT scan showed atherosclerotic changes and microvascular ischemic changes, left maxillary ethmoid and sphenoid thickening consistent with possible sinusitis. Laboratory data showed mild anemia. Hemoglobin and hematocrit 12.1 and 34.6 respectively. The patient did show some mild elevations in BUN and creatinine. No baseline The patient was admitted with altered mental status, unknown etiologies and felt that possibly hyperglycemia could play a role. Dr. Ruiz was consulted. He felt like it could also be medication related. He had an MRI of the brain done on 03/03/2017. Small subcentimeter areas of acute microvascular ischemia, acute lacunar infarcts in the deep white matter, posterior periventricular white matter in superior, frontal, parietal junction, subcortical white matter on the left. Also, mild chronic microvascular ischemic changes. Extensive paranasal sinus disease noted on the left. He had an echocardiogram with Doppler on 03/04/2017. Normal left ventricular systolic function. No diastolic dysfunction. Pulmonary pressure estimated at 41/21. Mild degree of mild mitral pulmonic regurgitation noted. Mild enlargement of the right ventricle. Chest x-ray done on 03/05/2017 interval decreased basilar atelectasis. Small residual left pleural effusion. Dr. Hand, mill attendant, was consulted. Dr. Ruiz was consulted. He apparently had been ruled out for seizure disorder or at least had an EGD back in [place]. Initially started on Keppra. On discharge, he was not sent home on Keppra. He has known underlying coronary artery disease, bypass grafting with a PALACIOS to the left anterior descending, saphenous vein graft to the ramus, saphenous vein graft to RCA on 05/01/1998. He has a history of PTCA in the past, and he was told he had cardiomyopathy. Recent echo shows good left ventricular function. Last heart catheterization on 11/03/2016 at [facility] where he was noted to have saphenous vein graft to the RCA was occluded. Saphenous venous graft to circumflex oblique marginal 1 had mild graft 80% stenosis which was stented. PALACIOS to the left anterior descending was patent. Blood sugars remained fairly well controlled. Blood pressure under control. He had a renal ultrasound and aortic ultrasound today and found some fatty liver change but, otherwise, unremarkable. The patient wanted to go home. It was felt he could go home on 03/07/2017. We repeated a chest x-ray on the day of discharge. No acute disease. Everything looked good. DISCHARGE MEDICATIONS: He will go home on 1. Aspirin 81 mg a day. 2. Lipitor 10 mg a day. 3. Plavix 75 mg a day. 4. Cardizem. We will switch him to 180 mg p.o. once a day. 5. Vitamin D 50,000 units p.o. I think that is once a month. 6. He is on lactobacillus 1 t.i.d. 7. Lopressor 25 mg a day. 8. Protonix 40 mg twice a day. Note that Dr. Ruiz saw him on 03/02/2017. He felt he had global encephalopathy of uncertain etiology. The lethargy could be attributed to recently stopping propofol. While he was in the unit, he had respiratory failure and did not have any new suggestions. No evidence to suggest a new CVA or seizure. We treated him for possible aspiration pneumonia. Chest x-ray cleared. Respiratory status improved dramatically. We are going to make sure that he no longer requires O2, and I think he can go home. I would suggest he has some home health to help. cc: Kj Eagle MD
[2017-03-07 13:35] LABS: ALLEN TEST YES; BE 1.4 mmoll (-3.0-3.0); BLOOD TYPE ARTERIAL; DRAW SITE R RADIAL; MODALITY ROOM AIR; O2(CT) 14.4 mL/dL (15.0-23.0); PCO2(98.6) 32 mmHg (35-45); PO2(98.6) 67 mmHg (60-100); SAMPLE BLOOD; SAO2 97.9 % (95.0-100.0); THB 10.8 g/dL (11.5-17.4); pH(98.6) 7.49 (7.35-7.45)
--- NOTE | 2017-03-07 13:49 | PROGRESS NOTE ---
DATE: 03/07/2017 Mr. Salomon is awake, alert, attentive. I do not detect dysarthria now. Language function is intact on brief bedside testing. He reports right-sided weakness is completely recovered, but I can still overcome the right arm at the deltoid grading 4+/5. Tone is equal in the arms. He did well on [id number] testing bilaterally. Visual cruz remain full, tested grossly by confrontational finger counting. IMPRESSION: Subcortical left hemisphere infarction, usual risk factors reviewed. I encouraged him to be aggressive with management of his risk factors. I do not think we need anything further from neurologic standpoint right now. Thanks for asking me to see Mr. Salomon. cc: Pooja Ruiz III, MD
--- NOTE | 2017-03-07 15:58 | Diag Imaging Result Document ---
PROCEDURE NAME: MYOCARDIAL PERF SCAN, STR/REST - 03/07/2017 LEXISCAN CARDIOLITE STRESS TEST: Lexiscan was infused per standard protocol. There was no chest pain. There was nonspecific ST-T changes noted. Stress electrocardiogram was negative for ischemia. Following Lexiscan infusion, Cardiolite was injected 31.8 mCi of Cardiolite was injected for the rest phase, 32.9 mCi of Cardiolite was injected for the stress phase. Gated SPECT images were obtained in standard views. Images revealed mild left ventricular dilatation. There is large size fixed defect in the inferior wall diagnostic of scar. In addition, there is low-grade small-sized lázaro-infarct ischemia in the inferoapical portion. There is a large size fixed defect in the anterior wall suggestive of scar associated with low- grade lázaro-infarct ischemia in the anterior wall. This patchy picture is suggestive of a cardiomyopathy picture. Left ventricular ejection fraction by gated SPECT was 45%. There is mild global hypokinesis. CONCLUSIONS: 1. No chest pain. 2. Negative Lexiscan stress electrocardiogram. 3. Myocardial perfusion images revealed fixed defect, moderate to severe grade in the anterior wall and in the inferior wall moderate to severe grade, associated with low-grade lázaro-infarct ischemia in the anterior wall and in the inferoapical wall. Left ventricular ejection fraction by gated SPECT was 44%. This is a cardiomyopathy picture. cc: MD Hannah Lynch PA
[2017-03-07 16:22] VITALS: BP 136/79
--- NOTE | 2017-03-08 10:09 | Carotid Study ---
DATE: 03/04/2017 PROCEDURE: Bilateral carotid ultrasound study. REQUESTING PHYSICIAN: Vinayak Purcell MD INTERPRETING PHYSICIAN: Laz Hernandez MD FAMILY PSYCHOLOGIST: [place] INDICATION: TIA. TECHNIQUE: Bilateral duplex and color flow imaging of the carotid arteries was performed using the [employer]kt[employer] E9 Ultrasound System with a 9L-D transducer. OBSERVED DATA RIGHT LEFT Brachial Blood Pressure Carotid Pulse Bruits: Carotid/Sub DIAGRAM OF ULTRASOUND IMAGING R L RIGHT INT EXT INT EXT LEFT Nicho (cm/s) Nicho (cm/s) Subclavian 92/0 Subclavian 113/0 CCA Proximal 90/16 CCA Proximal 70/16 CCA Distal 84/21 CCA Distal 112/21 Bulb 106/27 Bulb 130/39 ICA Proximal 106/33 ICA Proximal 104/26 ICA Mid 133/43 ICA Mid 100/38 ICA Distal 69/33 ICA Distal 75/26 ECA 134/13 ECA 128/17 Vertebral 49/18 A Vertebral 56/12 A ICA/CCA Ratio 1.48 ICA/CCA Ratio 0.92 % Stenosis 40%-59% % Stenosis 0%-39% FINDINGS: Although there is visually a significant amount of atherosclerosis and irregular plaque noted to bilateral carotid arteries using ultrasound by strict velocity criteria there is only a moderate stenosis on the right with degree of stenosis of 40%-59% and on the left there is normal- to-mild stenosis at 0%-39%. Both vertebral arteries are antegrade flow. Given these findings and the appearance of these visually I would recommend repeat studies and close monitoring. INTERPRETATION: Although visually there are irregular calcific plaques noted to bilateral carotid arteries at the level of the carotid bulb by strict velocity criteria there is a moderate stenosis on the right measuring 40%-59% and on the left there is [id number] stenosis at 0%-39%. Given the visual appearance of these studies I would recommend continued surveillance. cc: MD Vinayak Courtney MD
[2017-03-09] MEDS ORDERED: VITAMIN D PO SCH (09:00)
--- NOTE | 2017-03-25 05:16 | PROVIDER DOCUMENTATION ---
This chart was entered by Kellie Cui Scribe, acting as scribe for Ye España DO. HPI-Neurological Disorder - General Chief Complaint: Stroke-Like Symptoms Stated Complaint: SYNCOPE Time Seen by Provider: 03/02/17 19:18 Source: family Allergies/Adverse Reactions: Patient Allergies Allergy/AdvReac Type Severity Reaction Status Date / Time No Known Allergies Allergy Verified 04/16/16 19:01 Home Medications: Home Medication List Medication Instructions Recorded Confirmed Last Taken Type Aspirin [Aspir-Low] 81 mg PO DAILY 03/02/17 03/02/17 Unknown History Cholecalciferol (Vitamin D3) 50,000 unit PO DIRECTED 03/02/17 03/02/17 Unknown History [Vitamin D3] Citalopram [Celexa] 20 mg PO DAILY 03/02/17 03/02/17 Unknown History Clopidogrel Bisulfate [Plavix] 75 mg PO DAILY 03/02/17 03/02/17 Unknown History Lisinopril 10 mg PO DAILY 03/02/17 03/02/17 Unknown History Metoprolol [Lopressor] 25 mg PO DAILY 03/02/17 03/02/17 Unknown History NPH, Human Insulin Isophane 15 unit SQ BID 03/02/17 03/02/17 Unknown History [Novolin N] - History of Present Illness-Neuro Nature of Presenting Problem: 56 Y/O M presents to ED with Stroke-Like Symptoms. 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 Pt had an episode of High blood sugar and had a seizure was sent to [facility]. Pt daughter states that he had loss the ability to walk and talk on their way to the ED. Severity: reports: severe Onset/Duration: reports: just prior to arrival, 1/2 hour ago, this evening Timing: reports: still present Context: reports: impaired speech, other (stroke-like symptoms) Character of Altered Mental Status: reports: disoriented, confused, combative, agitated Any recent trauma/injury?: reports: none Cognitive Baseline: poor alertness Gait Baseline: walks without assistance Associated Symptoms: reports: decreased ability to walk or stand, slurred speech , trouble walking. denies: fever/chills, loss of consciousness, nausea, seizures Similar Symptoms Previously?: Yes Review of Systems - Adult - REVIEW OF SYSTEMS - ADULT Constitutional: denies: chills, fever Eyes: reports: no symptoms reported Ears, Nose, Mouth & Throat: reports: no symptoms reported Cardiovascular: denies: chest pain Respiratory: reports: no symptoms reported Gastrointestinal: reports: no symptoms reported Genitourinary: reports: no symptoms reported Musculoskeletal: reports: no symptoms reported Integumentary: reports: no symptoms reported Neurological: reports: slurred speech. denies: dizziness/vertigo, paresthesia, syncope Psychiatric: denies: depression, panic attacks, suicidal thoughts Endocrine: reports: no symptoms reported Hematologic/Lymphatic: reports: no symptoms reported Allergic/Immunologic: reports: no symptoms reported All Other Systems: Reviewed and Negative Past History - Adult - PAST MEDICAL HISTORY-ADULT Review of Records: reports: Old Records Reviewed, Nursing Assessment Review, Medications Reviewed, Social history reviewed & non-contributory. - IMMUNIZATION STATUS Childhood Immunizations: See Nurse Assessment Flu Vaccine: See Nurse Assessment - SOCIAL HISTORY Smoking: non-smoker Substance Use: none/never Alcohol Use Frequency: never Living Situation: family Physical Exam- Neurological - Physical Exam-Neuro General Appearance: moderate distress, lethargic, combative Eye Exam: bilateral eye: normal inspection, PERRL, EOMI HENMT: normocephalic/atraumatic, moist mucous membranes, normal ENT inspection, TMs normal, pharynx normal Neck: non-tender, full range of motion, supple, normal inspection Respiratory: chest non-tender, lungs clear, normal breath sounds Cardiovascular: normal peripheral pulses, regular rate, rhythm Abdominal Exam: normal bowel sounds, non tender, soft Lymphatic: no adenopathy Extremity: 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, 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 Exam: negative: abnormal speech Coordination/Gait: negative: normal finger to nose Motor/Sensory: no motor deficit, no sensory deficit Integumentary: normal color, normal turgor, warm/dry Psych/Mental Status: disoriented x 3, anxious Progress - PLAN OF CARE/RESULTS Progress/Plan/Lab Results: Orders Category Date Time Status Admit - [facility] Routine AdmDCTranf 03/02/17 21:07 Ordered Activity - Strict Bedrest ORDERED Care 03/02/17 21:07 Completed Call Admitting on Arrival AT ADMISSION Care 03/02/17 21:08 Completed Cardiac Monitoring DIRECTED Care 03/02/17 19:19 Completed Stuart Cath Insertion ORDERED Care 03/02/17 19:52 Completed Neurological Check Q4H Care 03/02/17 21:08 Completed Saline Loc DIRECTED Care 03/02/17 21:07 Active Saline Loc NOW Care 03/02/17 19:19 Active Vital Signs Order ARRIVAL TO ROOM Care 03/02/17 21:07 Completed NPO Diet 03/02/17 21:08 Completed HEAD W/O CONTRAST [CT] Stat Exams 03/02/17 19:19 Completed ABG [RESP] Routine Lab 03/02/17 21:26 Completed ALCOHOL BLOOD Stat Lab 03/02/17 19:15 Completed CBC WITH ELECTRONIC DIFF [HEME] Stat Lab 03/02/17 19:15 Completed CK PROFILE [SP CHEM] Stat Lab 03/02/17 19:15 Completed COMPREHENSIVE METABOLIC PANEL [CHEM] Stat Lab 03/02/17 19:15 Com[address] D-D[address]ER PL [COAG] Stat Lab 03/02/17 19:15 Completed FREE T4 Stat Lab 03/02/17 19:15 Completed MAGNESIUM [CHEM] Stat Lab 03/02/17 19:15 Completed PRO B-NATRIURETIC PEPTIDE Stat Lab 03/02/17 19:[address] Com[address]IME WITH INR PL [COAG] Stat Lab 03/02/17 19:[address] [COAG] Stat Lab 03/02/17 19:15 Completed TROPONIN T Stat Lab 03/02/17 19:15 Completed TSH Stat Lab 03/02/17 19:[address] W/POSS RFLX CULT [URINALYSIS] Stat Lab 03/02/17 19:50 Completed URINE CULTURE [RM] Routine Lab 03/02/17 20:49 Completed URINE DRUG SCREEN PL Stat Lab 03/02/17 19:50 Completed VITAMIN B12 Stat Lab 03/02/17 19:15 Completed 0.9% Sodium Chloride Inj [Ns] 1,000 ml Med 03/02/17 19:56 Discontinued .ROUTE As Directed 0.9% Sodium Chloride Inj [Ns] 1,000 ml Med 03/02/17 21:07 Discontinued IV 100 mls/hr 0.9% Sodium Chloride Inj [Ns] 1,000 ml Med 03/02/17 19:56 Discontinued IV 125 mls/hr 0.9% Sodium Chloride Inj [Ns] 1,000 ml Med 03/02/17 19:59 Discontinued IV 125 mls/hr Etomidate [Amidate] Med 03/02/17 19:42 Discontinued 20 mg .ROUTE .STK-MED ONE Etomidate [Amidate] Med 03/02/17 19:42 Discontinued 20 mg IV NOW ONE Furosemide [Lasix] Med 03/02/17 20:25 Discontinued 100 mg .ROUTE .STK-MED ONE Furosemide [Lasix] Med 03/02/17 20:24 Discontinued 80 mg IV NOW ONE Labetalol Med 03/02/17 22:29 Discontinued 20 mg IV NOW ONE Lorazepam [Ativan] Med 03/02/17 19:29 Discontinued 2 mg IV NOW ONE Propofol [Diprivan 1%] Med 03/02/17 19:50 Discontinued 1,000 mg in 100 ml IV 5 mls/hr Succinylcholine [Quelicin] Med 03/02/17 19:44 Discontinued 100 mg IV NOW ONE Succinylcholine [Quelicin] Med 03/02/17 19:43 Discontinued 200 mg .ROUTE .STK-MED ONE Vecuronium [Norcuron] Med 03/02/17 19:46 Discontinued 10 mg .ROUTE .STK-MED ONE Vecuronium [Norcuron] Med 03/02/17 19:48 Discontinued 10 mg IV NOW ONE Vecuronium [Norcuron] Med 03/02/17 19:51 Discontinued 10 mg IV NOW ONE Vecuronium [Norcuron] Med 03/02/17 21:25 Discontinued 10 mg IV NOW ONE Water, Sterile Inj [Sterile Water Inj] Med 03/02/17 19:47 Discontinued 10 ml .ROUTE .STK-MED ONE EKG [EKG] Stat Ther 03/02/17 19:19 Draft Transfer/Admit Order [TRANSFER] Routine Transfer 03/02/17 21:08 Completed Result Diagrams: 03/06/17 04:25 03/06/17 04:25 - EKG 1 Time of EKG reading by physician:: 20:21 EKG Read and Signed by:: Ye España EKG Interpretation (*Must complete 3 of following elements*): Abnormal (Marked ST abnormality inferolateral subendocardial injury. Anterior Infract) Rate: 140 Rhythm: ST with Premature ventricular complexes or fusion complexes Comments: Abnormal ECG - CT/MRI 1 CT Study: Head Impression: Normal CT Results: NAD - CONSULTS/PCP/HOSPITALIST Notification #1 *Consult/PCP/Hospitalist*: Time Discussed: 21:08 Reason/Comments: Xfer to [facility] Consult Disposition: Admit (Admit Accepted) Procedures - INTUBATION Time of Intubation: 19:45 Mallampati Class: 2 Intubation Method: orotracheal Equipment: ETT Tube Size (cm): 8.0 Pretreated with 100% Oxygen?: Yes Breath Sounds after Intubation: equal ETT Primary Tube Confirmation: Capnometry CO2 Change, Direct Visualization, Chest Rise and Fall Intubation Complications: no complications Vent Settings: See Respiratory Therapy Notes Procedure Comment: Preformed by Midlevel Paulina Underwood Departure - Departure Time of Disposition Decision: 20:54 DIAGNOSIS: Altered mental status, TIA (transient ischemic attack), UTI (urinary tract infection) Disposition: ADMITTED INPATIENT 09 Certified Medical Emergency: Emergent Condition: Stable - Critical Care Note This patient required my direct & personal management of CC.: Yes Total Time (mins): 30 Critical Care Statement: This patient required my direct personal management to treat or rule out processes, the absence of which, could potentiallly result in sudden, clinically significant life or limb threatening deterioration. This chart was documented by the indicated scribe, (Kellie Cui Scribe) and accurately reflects the services I performed and decisions made by me, Ye España DO, as attested by the provider's signature.
== END 2017-03-07 18:20 | disposition home or self-care (01) ==
LOC: P.ED 19:07 → ICU 23:12 → SUATTDRO 23:12 → ICU 23:55 → 3S 03-06 15:33
PROVIDERS: ATTEND Emergency Medicine

== ENCOUNTER 2017-04-04 13:06 | Observation (INO) ==
--- NOTE | 2017-04-04 13:59 | Diag Imaging Result Doc PS360 ---
EXAM: CHEST-2 VIEWS INDICATION: STROKE-LIKE TECHNIQUE: 2 views COMPARISON: 03/07/2017 FINDINGS: There is a small nodular density projecting of the right upper lobe not clearly identified on the fairly recent prior study. It may have been obscured by electrode pad. It is possible that it represents a calcified granuloma. Consider at least follow-up with a chest radiograph. The lungs are grossly clear, otherwise. There is no discrete pleural fluid collection or pneumothorax. There are stable CABG changes. The cardiomediastinal silhouette and central vasculature are essentially unremarkable, otherwise. IMPRESSION: Nonspecific nodular density in the right upper lung zone. Please see above discussion. No definite acute pathology, otherwise. Electronically signed by Joe Culver 04/04/2017 1:57 PM
--- NOTE | 2017-04-04 14:08 | Diag Imaging Result Doc PS360 ---
EXAM: HEAD W/O CONTRAST INDICATION: STROKE-LIKE COMPARISON: 03/02/2017 FINDINGS: There is patchy low attenuation in the periventricular and subcortical white matter suggesting mild microangiopathy, stable. There is no definite acute infarct given the limited sensitivity of CT versus MRI. There is no discrete intracranial mass, mass effect, or intracranial hemorrhage. The surrounding soft tissues and bony structures are essentially unremarkable. IMPRESSION: Stable mild chronic changes as described. No definite acute intracranial pathology. Electronically signed by Joe Culver 04/04/2017 2:06 PM
[2017-04-04 16:11] LABS: MANUAL DIFF NEEDED? NO
[2017-04-04 16:17] LABS: BASO% 0.9 % (0.0-0.8); EOS# 0.17 X1000 (0.0-0.7); EOS% 2.2 % (0.0-10.0); HEMATOCRIT 39.5 % (42.0-52.0); HEMOGLOBIN 13.7 g/dL (14.0-18.0); LYMPH# 2.74 X1000 (1.2-3.4); LYMPH% 35.5 % (20.5-51.1); MCH 28.7 PG (27-31); MCHC 34.7 g/dL (33-37); MCV 82.8 FL (81-99); MONO# 0.45 X1000 (0.11-0.59); MONO% 5.8 % (1.7-9.3); MPV 12.3 FL (7.4-10.4); NEUT% 55.6 % (42.2-75.2); PLT 203 X1000 (130-400); RBC 4.77 XMIL (4.7-6.1)
[2017-04-04 16:24] LABS: INR 1.03; PROTIME 10.8 Seconds (9.2-11.7)
[2017-04-04 16:49] LABS: ALBUMIN 3.7 g/dL (3.5-5.0); CALCIUM 9.2 mg/dL (8.8-10.2); POTASSIUM 3.9 mmol/L (3.5-5.1); TOTAL BILIRUBIN 0.31 mg/dL (0.20-1.00); TOTAL PROTEIN 7.2 g/dL (6.3-8.3)
--- NOTE | 2017-04-04 17:12 | PROVIDER DOCUMENTATION ---
This chart was entered by Yogesh Anne Scribe, acting as scribe for Jai Metzger MD. HPI-General Adult - General Chief Complaint: Stroke-Like Symptoms Stated Complaint: stroke like symptoms Time Seen by Provider: 04/04/17 16:42 Source: patient Allergies/Adverse Reactions: Patient Allergies Allergy/AdvReac Type Severity Reaction Status Date / Time No Known Allergies Allergy Verified 04/16/16 19:01 Home Medications: Home Medication List Medication Instructions Recorded Confirmed Last Taken Type Aspirin [Aspir-Low] 81 mg PO DAILY 03/02/17 03/02/17 Unknown History Cholecalciferol (Vitamin D3) 50,000 unit PO DIRECTED 03/02/17 03/02/17 Unknown History [Vitamin D3] Citalopram [Celexa] 20 mg PO DAILY 03/02/17 03/02/17 Unknown History Clopidogrel Bisulfate [Plavix] 75 mg PO DAILY 03/02/17 03/02/17 Unknown History Lisinopril 10 mg PO DAILY 03/02/17 03/02/17 Unknown History Metoprolol [Lopressor] 25 mg PO DAILY 03/02/17 03/02/17 Unknown History NPH, Human Insulin Isophane 15 unit SQ BID 03/02/17 03/02/17 Unknown History [Novolin N] - History of Present Illness -Gen Adult Nature of Presenting Problems: 56 yo M presents to the ER with complaint of slurred speech and R sided facial droop x 2 days. PT denies all other symptoms. Quality of Pain: reports: none Onset/Duration: reports: 2 days ago Timing: reports: still present Associated Symptoms: reports: other (R facial droop and slurred speech) Review of Systems - Adult - REVIEW OF SYSTEMS - ADULT Constitutional: denies: chills, fever Cardiovascular: denies: chest pain, palpitations Respiratory: denies: cough, shortness of breath Gastrointestinal: denies: abdominal pain, nausea, vomiting Neurological: reports: slurred speech, other (right side facial droop) Past History - Adult - PAST MEDICAL HISTORY-ADULT Review of Records: reports: Old Records Reviewed, Nursing Assessment Review, Medications Reviewed, Social history reviewed & non-contributory. - IMMUNIZATION STATUS Childhood Immunizations: See Nurse Assessment Flu Vaccine: See Nurse Assessment Physical Exam-General - PHYSICAL EXAM-ADULT Initial Vital Signs Reviewed: Yes - CONSTITUTIONAL General Appearance: appears well, alert, no apparent distress - RESPIRATORY Respiratory: chest non-tender, lungs clear, normal breath sounds - CARDIOVASCULAR Cardiovascular: normal peripheral pulses, regular rate, rhythm - GASTROINTESTINAL (ABDOMEN) Abdominal Exam: normal bowel sounds, non tender, soft - SKIN Integumentary: normal color, normal turgor, warm/dry - NEUROLOGIC Neurologic: facial droop (R) Progress - PLAN OF CARE/RESULTS Progress/Plan/Lab Results: Vital Signs - 8 hr 04/04/17 13:23 Temperature 97.5 F L Pulse Rate 79 Respiratory Rate 18 Blood Pressure 154/79 O2 Sat by Pulse Oximetry 97 Laboratory Results - last 24 hr 04/04/17 04/04/17 15:30 15:30 WBC 7.72 RBC 4.77 Hgb 13.7 L Hct 39.5 L MCV 82.8 MCH 28.7 MCHC 34.7 RDW Std Deviation 13.4 Plt Count 203 MPV 12.3 H Immature Gran % (Auto) 0.0 Neut % (Auto) 55.6 Lymph % (Auto) 35.5 Brooks % (Auto) 5.8 Eos % (Auto) 2.2 Baso % (Auto) 0.9 H Immature Gran # (Auto) 0.00 Neut # (Auto) 4.29 Lymph # (Auto) 2.74 Brooks # (Auto) 0.45 Eos # (Auto) 0.17 Baso # (Auto) 0.07 PT 10.8 INR 1.03 Orders Category Date Time Status CHEST-2 VIEWS [RAD] Stat Exams 04/04/17 13:27 Completed HEAD W/O CONTRAST [CT] Stat Exams 04/04/17 13:27 Completed CBC WITH DIFF [HEME] Stat Lab 04/04/17 15:30 Completed COMPREHENSIVE METABOLIC PANEL [CHEM] Stat Lab 04/04/17 15:30 Received PT [PROTIME WITH INR] [COAG] Stat Lab 04/04/17 15:30 Completed Result Diagrams: 04/04/17 15:30 04/04/17 15:30 - XRAY 1 XRAY Study: Chest Impression: See EMR Report - CT/MRI 1 CT Study: Head Impression: See EMR Report - CONSULTS/PCP/HOSPITALIST Notification #1 *Consult/PCP/Hospitalist*: Dr Muniz Time Discussed: 17:08 Consult Disposition: Admit Departure - Departure Date of Disposition Decision: 04/04/17 Time of Disposition Decision: 17:08 DIAGNOSIS: CVA (cerebral vascular accident) Qualifiers: CVA mechanism: unspecified Qualified Code(s): I63.9 - Cerebral infarction, unspecified Disposition: ADMITTED INPATIENT 09 Certified Medical Emergency: Emergent Condition: Fair Referrals and Follow-Ups: Jorge Fernando [Primary Care Provider] - - Critical Care Note This patient required my direct & personal management of CC.: No Comments: A 56 y/o M who presented with new onset of slurred speech right tongue deviation and slight right facial droop work up was negative will admit for stroke workup, pt is out of window for TPA This chart was documented by the indicated scribe, (Yogesh Anne, Paty) and accurately reflects the services I performed and decisions made by me, Jai Metzger MD, as attested by the provider's signature.
--- NOTE | 2017-04-04 18:41 | HISTORY AND PHYSICAL ---
CHIEF COMPLAINT: Stroke-like symptoms. HISTORY OF PRESENT ILLNESS: Mr. Salomon is a 56-year-old, male who was recently discharged from our service with acute CVA. This was around a month ago. At that time, he had an MRI done which revealed lacunar infarcts in the posterior periventricular white matter and superior front parietal junction subcortical white matter on the left. He was seen by Dr. Ruiz. He was placed on appropriate medications and discharged. Over the past month he has been doing well up until about 3 or 4 days ago, he started having stroke-like symptoms again, including slurred speech and left-sided weakness. Initially, the patient downplayed his symptoms, but after speaking with his daughter, she reports she has noted significant changes in his speech pattern and movements. Unfortunately, the patient is noncompliant with his medications as he cannot afford them at times. He will run out of his medications before he gets his monthly paycheck and then once he gets his paycheck he fills some. He came to the ER today at his daughter's request. In the ER he had a head CT done which showed chronic changes, but nothing acute. His laboratory data shows some mild renal insufficiency, hyperglycemia and mild anemia, but nothing acute. The patient denies any other symptoms, but he certainly has and dysphagia and very mild left-sided weakness. We are going to admit him for further treatment and evaluation. PAST MEDICAL HISTORY: 1. Recent stroke. 2. CAD. 3. Hypertension. 4. Hyperlipidemia. 5. Congestive heart failure, ejection fraction 59% with some diastolic dysfunction. 6. Bipolar disorder. SURGICAL HISTORY: CABG. SOCIAL HISTORY: Patient lives at home alone. He has a distant history of alcohol and tobacco dependence. His daughter is at the bedside. FAMILY HISTORY: Noncontributory. ALLERGIES: No known drug allergies. HOME MEDICATIONS: Aspirin 81 mg daily. Vitamin D 50,000 units p.o. daily. Celexa 20 mg daily. Plavix 75 mg daily. Lisinopril 10 mg daily. Lopressor 50 mg daily. NPH 15 units b.i.d. REVIEW OF SYSTEMS: Fourteen-point review of systems obtained and found to be negative with the exception of the HPI. PHYSICAL EXAMINATION: VITAL SIGNS: Blood pressure is 177/99, heart rate 69, respiratory rate is 18, O2 saturation 96% on room air. Temperature is 97.5 degrees. GENERAL: This is a disheveled-appearing chronically ill appearing 56-year-old male lying in hospital bed in no acute distress. NEUROLOGIC: The patient is awake and alert. He has dysphagia, mild left-sided weakness and very mild left-sided facial droop. He is oriented and follows commands. HEENT: Head is atraumatic and normocephalic. His pupils are equal, round, and reactive to light. Oral mucosa is moist. Trachea is midline. CHEST: Clear to auscultation bilaterally. CARDIOVASCULAR: Regular rate and rhythm, S1 S2 is noted. GI: Soft, nondistended, nontender. Bowel sounds are positive. EXTREMITIES: No edema. Pulses are palpable, but diminished. DIAGNOSTIC DATA: Head CT: Nothing acute. Chest x-ray which shows nonspecific nodular density in the right upper lobe. Would consider at least a followup with a chest radiograph. LABORATORY DATA: WBC 7.72, hemoglobin 13.7, hematocrit 39.5, platelet count 203,000. INR 1.03. Sodium 134, potassium 3.9, chloride 96, CO2 24, anion gap 14, BUN 19, creatinine 1.5. Glucose is 210. LFTs within normal limits. ASSESSMENT AND PLAN: 1. Stroke-like symptoms: Patient will be admitted for observation and will check an MRI in the morning. He has had a comprehensive stroke workup within the past month, so we will not reorder an echocardiogram, carotids, etc. We will continue neurologic checks and his aspirin and statin, controlling his blood sugar with his home medications and sliding scale insulin. We will check an MRI in the morning to ensure there have been no new areas of infarction. 2. Hypertension: We will allow for permissive hypertension the first 24 hours. So we will hold any antihypertensives unless his blood pressure is greater than 200/100. 3. Renal insufficiency: After further review it would seem he has at least chronic kidney disease stage II to III. We will add IV fluid hydration and monitor. 4. Hyperlipidemia: Chronic and stable, continue home medications. 5. Medication noncompliance: We are going to order a social work consult so we can see if we can give him some relief with his medications financially. 6. Deep venous thrombosis prophylaxis will be provided with Lovenox. Further recommendations to follow. Dictated by VERN Rodas for Wilma Muniz MD cc: VERN Rodas MD
[2017-04-04] MEDS: NS 1,000 ML IV SCH (19:31)
[2017-04-04] MEDS: HUMULIN N SUBQ SCH (21:00)
--- NOTE | 2017-04-05 05:53 | EKG Report ---
Test Performed on : 04/04/2017 1:28:26 PM Test Reason : No Order in [facility] Blood Pressure : / mmHG Vent. Rate : 074 BPM Atrial Rate : 074 BPM P-R Int : 152 ms QRS Dur : 098 ms QT Int : 406 ms P-R-T Axes : 000 101 011 degrees QTc Int : 450 ms Normal sinus rhythm. Septal infarct (cited on or before 07-JAN-2011) Lateral infarct (cited on or before 07-JAN-2011) Abnormal ECG When compared with ECG of 02-MAR-2017 20:21, Significant changes have occurred Unconfirmed Result
[2017-04-05 06:00] LABS: HEMATOCRIT 38.8 % (42.0-52.0); HEMOGLOBIN 13.7 g/dL (14.0-18.0); MCH 28.9 PG (27-31); MCHC 35.3 g/dL (33-37); MCV 81.9 FL (81-99); MPV 11.7 FL (7.4-10.4); RBC 4.74 XMIL (4.7-6.1)
[2017-04-05 06:21] LABS: AGAP 12; BUN 14 mg/dL (8-22); CHLORIDE 103 mmol/L (98-107); COSMO 279; POTASSIUM 3.9 mmol/L (3.5-5.1); SODIUM 139 mmol/L (136-145); TCO2 24 mmol/L (25-35)
[2017-04-05] MEDS: ASPIRIN EC PO SCH (08:00)
[2017-04-05] MEDS: NS 1,000 ML IV SCH (08:05)
[2017-04-05] MEDS: CELEXA PO SCH (08:30)
[2017-04-05] MEDS: PLAVIX PO SCH (08:35)
--- NOTE | 2017-04-05 08:57 | Diag Imaging Result Doc PS360 ---
EXAM: MRI BRAIN W W/O CONTRAST HISTORY: new onset slurred speech, left sided weakness TECHNIQUE: Axial, sagittal, and coronal images obtained in multiple sequences. These were followed by postcontrast axial and coronal images. COMPARISON: 03/03/2017. FINDINGS: There has been slight progression in the lacunar infarcts in the deep white matter of the left parietal lobe, basal ganglia, and thalamus. There are also chronic microvascular ischemic changes. No mass or midline shift. No enhancing lesion on the postcontrast images. No hydrocephalus. No sinus opacification. Minimal mucosal thickening in multiple sinuses. IMPRESSION: Slight progression in the recent left lacunar infarcts. Electronically signed by Jonh Barrera 04/05/2017 8:54 AM
--- NOTE | 2017-04-05 16:05 | PROGRESS NOTE ---
DATE: 04/05/2017 SUBJECTIVE: The patient states that he feels okay today. He has no complaints. He ate his breakfast and lunch without any difficulty. OBJECTIVE: Vital Signs: Temperature 98.2 degrees, blood pressure 170/93, heart rate 69, respiration 16, O2 saturations 94% on room air. General: This is an elderly male, lying in bed, in no acute distress. Head: Normocephalic, atraumatic. Heart: S1, S2. Normal. Regular rate and rhythm. Lungs: Clear to auscultation bilaterally. Abdomen: Positive bowel sounds. Soft, nontender, nondistended. Extremities: No edema. No cyanosis. No calf tenderness. Neurologic: The patient is alert and oriented x3. He is able to move all 4 extremities. LABS: Sodium 139, potassium 3.9, chloride 103, CO2 24, BUN 14, creatinine 1.1, glucose 118. ASSESSMENT AND PLAN: 1. Acute cerebrovascular accident. The MRI done this morning shows slight progression of the recent left lacunar infarcts. We will continue on Plavix and statin therapy. We will also consult Physical Therapy. 2. Acute kidney injury. Resolved. 3. Situational depression. Continue on Celexa. 4. Diabetes mellitus type 2. Continue on NPH. 5. Disposition. The patient should be stable for discharge home tomorrow if he does well with physical therapy today. cc: Wilma Muniz MD
[2017-04-05] MEDS: HUMULIN N SUBQ SCH ×2 (19:43→20:52)
[2017-04-06 07:08] LABS: HEMOGLOBIN 14.1 g/dL (14.0-18.0); MCH 28.8 PG (27-31); MCHC 35.3 g/dL (33-37); MCV 81.8 FL (81-99); MPV 11.9 FL (7.4-10.4); RBC 4.89 XMIL (4.7-6.1)
[2017-04-06 07:26] LABS: CALCIUM 9.4 mg/dL (8.8-10.2); POTASSIUM 4.1 mmol/L (3.5-5.1)
[2017-04-06] MEDS: HUMULIN N SUBQ SCH (08:12)
[2017-04-06] MEDS: PLAVIX PO SCH (08:12)
[2017-04-06] MEDS: CELEXA PO SCH (08:12)
[2017-04-06] MEDS: ASPIRIN EC PO SCH (08:12)
[2017-04-06] MEDS ORDERED: HUMULIN N SUBQ SCH ×2 (09:00→21:00)
[2017-04-06] MEDS ORDERED: VITAMIN D PO SCH (09:00)
[2017-04-06 14:21] VITALS: BP 151/86
--- NOTE | 2017-04-06 15:25 | DISCHARGE SUMMARY ---
ADMISSION DATE: 04/04/2017 DISCHARGE DATE: 04/06/2017 CONSULTATIONS: None. PERTINENT PROCEDURES: 1. Head CT showed stable mild chronic changes. No acute intracranial pathology. 2. Brain MRI showed slight progression in the infarct. DISCHARGE DIAGNOSES: 1. Acute cerebrovascular accident 2. Acute kidney injury 3. Situational depression 4. Diabetes mellitus type 2 5. Hypertension HOSPITAL COURSE: Briefly, Mr. Salomon is a 56-year-old male, who has a past medical history of recent stroke, CAD, hypertension, hyperlipidemia, and congestive heart failure, with an EF 59%, with some diastolic dysfunction, and bipolar disorder. He recently was discharged from our service for acute CVA around a month ago. At that time, he had an MRI done which revealed lacunar infarcts in the posterior periventricular white matter and superior frontoparietal junction. Subcortical white matter on the left. He was seen by Dr. Ruiz. He was placed on appropriate medications at discharge. Over the past month, he has been doing well, up until 3 or 4 days prior to admission. He began having stroke-like symptoms, including slurred speech, left-sided weakness. Initially he played down his symptoms, but after speaking with his daughter she noted significant changes in his speech pattern and movements. Unfortunately, the patient was noncompliant with his medications, as he could not afford them at times. He will run out of his medications before he gets his monthly paycheck and then once he gets his paycheck he will fill some. In the ED, he had a head CT which showed some chronic changes but nothing acute. Laboratory data revealed mild renal insufficiency, hyperglycemia, and mild anemia, but nothing acute. The patient was admitted for stroke-like symptoms. His brain MRI did show slight progression in the recent left lacunar infarcts. He continued on his Plavix and statin therapy. We did consult Physical Therapy. He is refusing rehab. His acute kidney injury resolved. [employer] was also contacted. The patient states he has a walker, as well as a cane that he uses on occasion. He worked with physical therapy. He is being discharged home today. VITAL SIGNS: Temperature is 97.7 degrees, heart rate 73, respirations 18, blood pressure 154/78, O2 saturation is 98% on room air. DISCHARGE DIET: Healthy heart. DISCHARGE MEDICATIONS: 1. Aspirin 81 mg p.o. daily. 2. Vitamin D3 76625 units p.o. as directed. 3. Celexa 20 mg p.o. daily. 4. Plavix 75 mg p.o. daily. 5. Humulin 70/30, 15 units subcutaneous ac and hs. 6. Humalog 70/30 Quick Pen, 18 units subcu before meals. 7. Lisinopril 10 mg p.o. daily. 8. Lopressor 50 mg p.o. daily. 9. Simvastatin 40 mg p.o. daily. FOLLOWUP: The patient is being discharged home. He has been instructed to be compliant with all his medications. The patient can return to the ED for any worsening of symptoms. He will followup with his primary care physician, Dr. Jorge Fernando, in 7-10 days. DISCHARGE TIME: Thirty minutes. Dictated by VERN Arias for Wilma Muniz MD cc: MD Jorge Ramires MD [facility]
[2017-04-07] MEDS ORDERED: HUMULIN N SUBQ SCH (09:00)
== END 2017-04-06 14:58 | disposition home health service (06) ==
LOC: ED 13:06 → EDIPHOLD 17:38 → INTOOBSV 17:38 → 3N 04-05 14:55
PROVIDERS: ATTEND Internal Medicine